=== PATIENT | female | born 1955 | race Caucasian/White ===

== ENCOUNTER 2017-01-27 20:45 | Emergency (ER) | payer BC | END 2017-01-27 23:36 | disposition home or self-care (01) | LOC: ER 20:45 | DX: S63.273A Dislocation of unspecified interphalangeal joint of left middle finger, initial encounter (principal); W23.0XXA Caught, crushed, jammed, or pinched between moving objects, initial encounter; Y92.009 Unspecified place in unspecified non-institutional (private) residence as the place of occurrence of the external cause ==